=== PATIENT | male | born 1975 | race Caucasian/White ===

== ENCOUNTER 2019-01-18 09:42 | Emergency (ER) | payer OTHER ==
--- NOTE | 2019-01-18 10:09 | ED Physician Documentation ---
PD HPI ABD PAIN - Stated complaint Stated Complaint: ABD PX - Chief complaint Chief Complaint: Abd Pain - History obtained from History obtained from: Patient - History of Present Illness Timing - onset: How many weeks ago (1) Timing - duration: Weeks (1) Timing - details: Waxing and waning Quality: Dull Location: RLQ Worsened by: Palpation, Other (Straining.) Associated symptoms: No: Fever, Nausea, Vomiting, Dysuria, Testicular pain Similar symptoms before: Has not had sx before Recently seen: Clinic ([facility]) - Additional information Additional information: The patient is a 43-year-old male who presents with right lower quadrant abdominal pain that he has been experiencing intermittently for the past week or more. He has noticed a bulge in the right groin. The pain was worse this morning than it has been previously. He denies fever, nausea or vomiting, or dysuria. He does report slightly decreased appetite. He is status post left inguinal hernia repair at age 20. He was seen by his primary physician at the [facility] earlier in the week, and she put in a referral for an ultrasound and general surgery consult. He was told to come to the emergency department today because of increased pain. Review of Systems Constitutional: denies: Fever Nose: denies: Congestion Throat: denies: Sore throat Cardiac: denies: Chest pain / pressure Respiratory: denies: Dyspnea, Cough GI: reports: Abdominal Pain (RLQ). denies: Nausea, Vomiting, Diarrhea : denies: Dysuria, Frequency, Testicular pain Skin: denies: Rash Musculoskeletal: denies: Back pain Neurologic: denies: Headache PD PAST MEDICAL HISTORY - Past Medical History Cardiovascular: None Respiratory: None Neuro: None GI: None : None HEENT: None Psych: None Musculoskeletal: None - Past Surgical History Past Surgical History: Yes General: Other (Left inguinal hernia repair) - Present Medications Home Medications: Ambulatory Orders Medication Instructions Recorded Confirmed No Known Home Medications 01/18/19 01/18/19 - Allergies Allergies/Adverse Reactions: Allergies Allergy/AdvReac Type Severity Reaction Status Date / Time No Known Drug Allergies Allergy Verified 01/18/19 10:08 - Social History Does the pt smoke?: No Smoking Status: Never smoker Does the pt drink ETOH?: No Does the pt have substance abuse?: No - Immunizations Immunizations are current?: Yes - POLST Patient has POLST: No PD ED PE NORMAL - Vitals Vital signs reviewed: Yes (normal) - General General: Alert and oriented X 3, Well developed/nourished - HEENT HEENT: Atraumatic, Moist mucous membranes, Pharynx benign - Neck Neck: No adenopathy, No JVD - Cardiac Cardiac: RRR, No murmur - Respiratory Respiratory: No respiratory distress, Clear bilaterally - Abdomen Abdomen: Normal bowel sounds, Soft, Non tender - Male Male : Die Keeper present (BEE Sin), Other (There is no testicular or scrotal swelling or tenderness to palpation. A right inguinal hernia defect is palpated. When the patient strains the defect fills, and then is easily reduced.) - Derm Derm: No rash - Extremities Extremities: No edema, No calf tenderness / cord - Neuro Neuro: Alert and oriented X 3, No motor deficit, Normal speech Results - Vitals Vitals: Vital Signs - 24 hr 01/18/19 01/18/19 01/18/19 09:45 09:55 11:41 Temperature 36.3 C L 36.7 C 36.7 C Heart Rate 54 L 52 L 103 H Respiratory 16 14 14 Rate Blood Pressure 121/79 132/80 H 116/79 O2 Saturation 100 100 100 Oxygen O2 Source Room air - Labs Labs: Laboratory Tests 01/18/19 Unknown Urine Color LIGHT YELLOW Urine Clarity CLEAR Urine pH 5.5 Ur Specific [place] <=1.005 Urine Protein NEGATIVE Urine Glucose (UA) NEGATIVE Urine Ketones NEGATIVE Urine Occult Blood NEGATIVE Urine Nitrite NEGATIVE Urine Bilirubin NEGATIVE Urine Urobilinogen 0.2 (NORMAL) Ur Leukocyte Esterase NEGATIVE Ur Microscopic Review NOT INDICATED Urine Culture Comments NOT INDICATED - Rads (name of study) Pelvic U/S Radiology: Prelim report reviewed, EMP read contemporaneously, See rad report (Reducible fat-containing right inguinal hernia.) PD MEDICAL DECISION MAKING - ED course Complexity details: reviewed results, re-evaluated patient, considered differential, d/w patient ED course: The patient's presentation is most consistent with a reducible right inguinal hernia. An ultrasound confirms the clinical suspicion. There is no evidence of testicular or scrotal involvement. I discussed with the patient the diagnosis, symptomatic treatment and surgical follow-up, as well as potentially worrisome signs or symptoms that should prompt reevaluation in the emergency department. Departure - Departure Disposition: 01 Home, Self Care Clinical Impression: Right inguinal hernia Condition: Stable Instructions: ED Hernia Inguinal Follow-Up: NAYA Medina [Provider Group] [facility] [Provider Group] Zachariah Delgado MD [Provider Admit Priv/Credential] - Comments: Avoid straining or lifting heavy objects. Follow-up with general surgeon as soon as possible. Return to the emergency department if you develop increasing bulging or pain in your groin, that is not reducible, or if you develop fever or vomiting.
[2019-01-18 10:30] LABS: BILIRUBIN,URINE NEGATIVE (NEGATIVE); GLUCOSE, URINE (UA) NEGATIVE (NEGATIVE); KETONES,URINE (UA) NEGATIVE (NEGATIVE); LEUKOCYTE ESTERASE, URINE NEGATIVE (NEGATIVE); NITRITE,URINE NEGATIVE (NEGATIVE); OCCULT BLOOD,URINE NEGATIVE (NEGATIVE); PH,URINE 5.5 PH (5.0-7.5); PROTEIN,URINE NEGATIVE (NEGATIVE); UROBILINOGEN,URINE 0.2 (NORMAL) E.U./dL (NORMAL)
[2019-01-18 10:32] LABS: CLARITY,URINE CLEAR (CLEAR)
--- NOTE | 2019-01-18 11:05 | Ultrasound Report ---
Reason: Suspected Right inguinal hernia Procedure Date: 01/18/2019 Accession Number: [id number] / [id number] Procedure: US - Pelvic Limited or F/U CPT Code: FULL RESULT: EXAM: INGUINAL ULTRASOUND EXAM DATE: 01/18/2019 10:47 AM. CLINICAL HISTORY: Suspected Right inguinal hernia. COMPARISON: None. TECHNIQUE: Real-time sonographic imaging of the right inguinal canal and vascular structures, including color-flow, was performed by the internship. Multiple delivery representative static images were saved for review. FINDINGS: Hernia: There is a reducible fat-containing right inguinal hernia with the neck of the hernia measuring approximately 2.4 cm. It lies medial to the epigastric artery and corresponds to the area of focal tenderness. Soft Tissues: No fluid collections or adenopathy. Other: None. IMPRESSION: Reducible fat-containing right inguinal hernia. RADIA
[2019-01-18 11:43] VITALS: BP 116/79
== END 2019-01-18 12:34 | disposition home or self-care (01) ==
LOC: ED 09:42
DX: K40.90 Unilateral inguinal hernia, without obstruction or gangrene, not specified as recurrent (principal)
CPT/HCPCS: 76857; 81001; 81003; 87086; 99283

== ENCOUNTER 2019-02-12 09:44 | Day surgery (SDC) | payer OTHER ==
[2019-02-12] MEDS ORDERED: LACTATED RINGERS 1,000 ML IV ONE ×2 (09:52→13:39)
[2019-02-12] MEDS ORDERED: CEFAZOLIN SODIUM IN 0.9 % NACL 2 GM/100 ML BAG IV ONE (09:57)
--- NOTE | 2019-02-12 10:31 | ANESTHESIA ---
Pre-Anesthesia VS, & Labs - Diagnosis Right inguinal hernia and left recurrent inguinal hernia - Procedure Laparoscopic repair of right inguinal hernia and recurrent left inguinal hernia Vital Signs: Temp Pulse Resp BP Pulse Ox 36.4 C L 63 12 119/79 97 02/12/19 09:52 02/12/19 09:52 02/12/19 09:52 02/12/19 09:52 02/12/19 09:52 Height 5 ft 7 in Weight (kg) 69.5 kg Body Mass Index 24.7 - NPO >8 hours Home Medications and Allergies No Known Home Medications 01/18/19 Allergies/Adverse Reactions: Allergies Allergy/AdvReac Type Severity Reaction Status Date / Time No Known Drug Allergies Allergy Verified 02/09/19 13:55 Anes History & Medical History - Anesthetic History Anesthesia Complications: reports: No previous complications - Medical History Cardiovascular: reports: None Pulmonary: reports: None Gastrointestinal: reports: None Urinary: reports: None Neuro: reports: None Musculoskeletal: reports: None Endocrine/Autoimmune: reports: None Blood Disorders: reports: None Skin: reports: None Smoking Status: Never smoker Psychosocial: reports: No issues indicated - Surgical History General: Other (left IHR) Orthopedic: ACL reconstruction, Other (right 5th digit reconstruction) Exam General: Alert, Oriented x3, Cooperative, No acute distress Dental: WNL Mouth Openin Fingerbreadth Neck Mobility: Normal Mallampati classification: II Thyromental Distance: 4-6 cm (2 FB, High arched palate) Respiratory: Lungs clear, Normal breath sounds, No respiratory distress, No accessory muscle use Cardiovascular: Regular rate, Normal S1, Normal S2, No murmurs Mental/Cognitive Status: Alert/Oriented X3, Normal for patient Plan Anesthesia Type: General Consent for Procedure(s) Verified and Reviewed: Yes Code Status: Attempt Resuscitation ASA classification: 1-Healthy patient Is this case an emergency?: No
[2019-02-12] MEDS ORDERED: BUPIVACAINE 0.5%-EPI 1:200000 PF 30 ML VIAL ONE (11:20)
[2019-02-12] MEDS ORDERED: ceFAZolin 1 GM VIAL ONE (11:21)
[2019-02-12] MEDS ORDERED: BUPIVACAINE 0.5%-EPI 1:200000 PF 30 ML VIAL SUBQ ONE ×2 (12:18)
[2019-02-12] MEDS ORDERED: ceFAZolin 1 GM VIAL IR ONE (12:19)
[2019-02-12] MEDS ORDERED: GLYCOPYRROLATE 1 MG/5 ML VIAL IVP ONE (12:35)
[2019-02-12] MEDS ORDERED: ROCURONIUM 50 MG/5 ML VIAL IVP ONE (12:35)
[2019-02-12] MEDS ORDERED: NEOSTIGMINE 1 MG/1 ML 10 ML MDV IVP ONE (12:35)
[2019-02-12] MEDS ORDERED: PROPOFOL 200 MG/20 ML VIAL IVP ONE (12:35)
[2019-02-12] MEDS ORDERED: fentaNYL 100 MCG/2 ML VIAL IVP ONE (12:35)
[2019-02-12] MEDS ORDERED: LIDOCAINE-MPF 2% 5 ML VIAL IM ONE (12:35)
[2019-02-12] MEDS ORDERED: MIDAZOLAM 2 MG/2 ML VIAL IVP ONE (12:35)
[2019-02-12] MEDS ORDERED: ONDANSETRON 4 MG/2 ML VIAL IVP ONE (12:35)
[2019-02-12] MEDS ORDERED: DEXAMETHASONE 4 MG/ML VIAL IVP ONE (12:35)
[2019-02-12] MEDS ORDERED: ACETAMINOPHEN 325 MG TABLET PO PRN (13:41)
[2019-02-12] MEDS ORDERED: ONDANSETRON 4 MG/2 ML VIAL IVP PRN (13:41)
[2019-02-12] MEDS ORDERED: IBUPROFEN 600 MG TABLET PO PRN (13:41)
[2019-02-12] MEDS ORDERED: oxyCODONE 5 MG TABLET PO PRN (13:41)
[2019-02-12] MEDS: fentaNYL 100 MCG/2 ML VIAL ONE ×2 (13:56→14:02)
[2019-02-12] MEDS: HYDROmorphone 0.5 MG/0.5 ML SYRINGE ONE ×2 (14:11→14:18)
[2019-02-12 15:18] VITALS: BP 133/78
--- NOTE | 2019-02-13 09:36 | OPERATIVE REPORT ---
DATE OF SERVICE: 02/12/2019 Physician: Zachariah Delgado MD PREOPERATIVE DIAGNOSES 1. Symptomatic right inguinal hernia. 2. Symptomatic recurrent left inguinal hernia. PROCEDURE PERFORMED 1. Laparoscopic repair of right inguinal hernia. 2. Laparoscopic repair of recurrent left inguinal hernia. ANESTHESIA: General endotracheal by Ulices Funes CRNA SURGEON: Zachariah Delgado MD ESTIMATED BLOOD LOSS: Minimal. COMPLICATIONS: None. FINDINGS: Laparoscopy revealed a moderate-sized direct right inguinal hernia. There was no evidence of indirect or femoral hernia. On the left side, a recurrent direct inguinal hernia was also identi fied without evidence of indirect or femoral hernia. INDICATIONS FOR PROCEDURE: Patient is a 43-year-old gentleman with a recent onset of a painful right groin bulge and a recurrent left groin bulge, status post remote left inguinal herniorrhaphy. [place] revealed evidence of bilateral inguinal hernias, initial on the right, recurrent on the left. He was advised to undergo a laparoscopic repair of both hernias. TECHNIQUE: After informed consent, patient was taken to the operating room, where he was placed unde r general endotracheal anesthesia. Preoperative preparation included application of sequential calf compression boots and the administration of 2 grams of cefazolin intravenously within an hour of the incision. His abdomen had been clipped in the ASU, was prepared with ChloraPrep solution and draped in the usual sterile fashion. A 2 cm long infraumbilical midline incision was made and carried down through subcutaneous tissues until the midline fascia was identified. It was incised vertically to t he right of the midline, exposing the right rectus muscle, which was retracted laterally, and the pos terior rectus sheath exposed. A dissecting balloon was then passed into the space and directed cauda lly to the pubis, where it was inflated for 3 minutes, then deflated and replaced with a 10 mm struct ural balloon. Pneumopreperitoneum was then established with carbon dioxide and a 10 mm 30-degree Str yker telescope was inserted. Two additional 5 mm ports were placed in the lower midline. The preper itoneal space was dissected on the right, exposing the inguinal floor, including Adarsh ligament, the epigastric vessels, the direct, indirect, and femoral regions. Dissection was carried out laterally to the level of the umbilicus. Fatty tissue and hernia sac were seen present in the direct space. This was reduced with gentle, steady traction. Once the hernia had been reduced and the inguinal víctor or fully exposed, a 3DMax lightweight mesh right side prosthesis was soaked in antibiotic solution co ntaining 1 gram of cefazolin per liter. It was then placed in the preperitoneal space, oriented appr opriately to cover the inguinal floor and secured in place with the 5 mm AbsorbaTack device. Approxi mately 5 tacks were used, with care being taken to avoid tack placement in the right lower quadrant t o avoid nerve injury. Mesh was seen to expand nicely against the anterior abdominal wall and cover t he direct, indirect, and femoral spaces. After hemostasis was ensured, attention was turned to the l eft side, where an identical procedure was performed using a 3DMax large left mesh, placed in an appr opriate position and tacked in place in a similar fashion. On both sides, small openings were create d in the peritoneum, which were closed with clips. After hemostasis was ensured, pneumoperitoneum wa s allowed to escape and the peritoneal sac was seen to expand nicely against the mesh on both sides. Instruments and cannulas were removed under direct vision. The peritoneum was allowed to fully esca pe and the incisions were closed in layers using continuous 0 Vicryl to reapproximate the anterior fa scia at the infraumbilical midline port, followed by 3-0 Vicryl for subcutaneous tissues at the infra umbilical port, followed by 4-0 Monocryl subcuticular skin closure at all the port sites, followed by Dermabond. 20 mL of 0.5% Marcaine with epinephrine was infiltrated in the incision to assist in pos toperative analgesia. Anesthesia was terminated and patient was transferred to the recovery room in satisfactory condition. Instrument and needle counts were correct x2 and no drains were used. TD: 02/13/2019 09:19
== END 2019-02-12 09:45 | disposition home or self-care (01) ==
LOC: SDS 09:44
PROVIDERS: ATTEND Internal Medicine Gastroenterology
PROC: 0YUA4JZ Supplement Bilateral Inguinal Region with Synthetic Substitute, Percutaneous Endoscopic Approach (ICD-10-PCS; principal; 2019-02-12 11:00)
DX: K40.21 Bilateral inguinal hernia, without obstruction or gangrene, recurrent (principal)
CPT/HCPCS: 49650; 49651; C1781; J0690; J1170; J7120